=== PATIENT | male | born 1950 | race Caucasian/White ===

== ENCOUNTER 2017-02-16 07:12 | Day surgery (SDC) | payer MEDICARE, BC ==
[~2017-02-16 07:12] MED LIST: Acetaminophen TAB* 325 MG PO PRN; Buffered Lidocaine 0.9% SYRIN* 5 ML/SYR SYRINGE INTRADERM ONE
[2017-02-16] MEDS ORDERED: Midazolam* 1 MG/ML 2 ML VIAL (2 MG) ONE ×2 (08:37→08:56)
[2017-02-16] MEDS ORDERED: fentaNYL* 50 MCG/ML 2 ML VIAL (100 MCG VIAL) ONE (08:46)
[2017-02-16 09:35] VITALS: BP 160/73
--- NOTE | 2017-02-16 10:00 | OP ---
DATE OF OPERATION: 02/16/2017. DATE OF : 1950. SURGEON: Sam Longo M.D. PREOPERATIVE DIAGNOSIS: Cataract right eye. POSTOPERATIVE DIAGNOSIS: Cataract right eye. OPERATIVE PROCEDURE: Phacoemulsification right eye with IOL. PROCEDURE: The patient was brought to the operating room after being given 1/2% Alcaine with epinep hrine drops in the preoperative area. The eye was prepped and draped in the usual sterile fashion. Sterile drape and eyelid speculum were placed. Again, topical 1/2% Alcaine with epinephrine was gi zachary. A paracentesis incision was made at the 9 o'clock position with the No.75 blade. Clear cornea incision 2.2 x 2.2-mm was created at the 12 o'clock position starting at the anterior limbus using the 2.2-mm keratome. The anterior chamber was irrigated with 0.4 mL of 1% non-preservative intracam eral lidocaine and filled with DisCoVisc. A capsulorrhexis was completed using the cystotome and th e Utrata forceps. Hydrodissection was performed with balanced salt solution. The lens nucleus was r emoved with the Phacoemulsification handpiece without incident. Cortex was removed with the irrigat ion-aspiration handpiece. The capsular bag was re-inflated using DisCoVisc and an [id number] 19.5 impla nt was inserted with the shooter. The irrigation-aspiration handpiece was used to remove all residu al DisCoVisc. The eye was refilled with balanced salt solution and the wound checked and found to b e watertight. Topical Maxitrol drops were given. [id number]/[facility] #: [id number]
[2017-02-16] MEDS ORDERED: Buffered Lidocaine 0.9% SYRIN* 5 ML/SYR SYRINGE ONE (13:32)
[2017-02-16] MEDS ORDERED: Cyclopentolate 1% OPTH.SOL* 2 ML BTL ONE (13:32)
[2017-02-16] MEDS ORDERED: Neomycin/Polymy/Dex OPTH.SUSP* MAXITROL 0.1% 5 ML ONE (13:32)
[2017-02-16] MEDS ORDERED: Phenylephrine 2.5% OPTH.SOL* 2 ML BTL ONE (13:32)
[2017-02-16] MEDS ORDERED: Lidocaine 2% EPI 1:200000 MPF* 20 ML VIAL ONE (13:32)
[2017-02-16] MEDS ORDERED: acetaZOLAMIDE TAB* 250 MG ONE (13:32)
[2017-02-16] MEDS ORDERED: Proparacaine 0.5% OPHTH.SOL* 15 ML BTL ONE (13:32)
[2017-02-16] MEDS ORDERED: Lidocaine 1% MPF* 2 ML VIAL ONE (13:32)
[2017-02-16] MEDS ORDERED: Povidone Iodine 5% OPTH* 30 ML BTL ONE (13:32)
[2017-02-16] MEDS ORDERED: Ketorolac 0.5% OPHTH (NF) 0.5 % 5 ML BTL ONE (13:33)
== END 2017-02-16 09:30 | disposition home or self-care (01) ==
LOC: OREAST 07:12
PROVIDERS: ATTEND Specialist
DX: H25.811 Combined forms of age-related cataract, right eye (principal); E11.9 Type 2 diabetes mellitus without complications; Z79.84 Long term (current) use of oral hypoglycemic drugs; H18.6 Keratoconus; Z83.511 Family history of glaucoma; G47.31 Primary central sleep apnea; I10 Essential (primary) hypertension
CPT/HCPCS: A9270-GY; J2250; J3010; V2632

== ENCOUNTER 2017-02-23 10:10 | Day surgery (SDC) | payer MEDICARE, BC ==
[2017-02-23] MEDS ORDERED: Phenylephrine 2.5% OPTH.SOL* 2 ML BTL ONE (10:28)
[2017-02-23] MEDS ORDERED: Lidocaine 1% MPF* 2 ML VIAL ONE (10:28)
[2017-02-23] MEDS ORDERED: acetaZOLAMIDE TAB* 250 MG ONE (10:28)
[2017-02-23] MEDS ORDERED: Povidone Iodine 5% OPTH* 30 ML BTL ONE (10:28)
[2017-02-23] MEDS ORDERED: Lidocaine 2% EPI 1:200000 MPF* 20 ML VIAL ONE (10:28)
[2017-02-23] MEDS ORDERED: Neomycin/Polymy/Dex OPTH.SUSP* MAXITROL 0.1% 5 ML ONE (10:28)
[2017-02-23] MEDS ORDERED: Cyclopentolate 1% OPTH.SOL* 2 ML BTL ONE (10:28)
[2017-02-23] MEDS ORDERED: Ketorolac 0.5% OPHTH (NF) 0.5 % 5 ML BTL ONE (10:28)
[2017-02-23] MEDS ORDERED: fentaNYL* 50 MCG/ML 2 ML VIAL (100 MCG VIAL) ONE (12:35)
[2017-02-23] MEDS ORDERED: Midazolam* 1 MG/ML 5 ML VIAL (5 MG) ONE (12:36)
[2017-02-23] MEDS ORDERED: Metoprolol Tartrate IV* 1 MG/ML 5 ML VIAL ONE (13:17)
[2017-02-23 13:39] VITALS: BP 140/68
[2017-02-23] MEDS ORDERED: Proparacaine 0.5% OPHTH.SOL* 15 ML BTL ONE (15:32)
[2017-02-23] MEDS ORDERED: Buffered Lidocaine 0.9% SYRIN* 5 ML/SYR SYRINGE ONE (15:32)
--- NOTE | 2017-02-23 16:43 | OP ---
DATE OF OPERATION: 02/23/2017 - [facility] DATE OF : 1950. SURGEON: Sam Longo M.D. PREOPERATIVE DIAGNOSIS: Cataract left eye. POSTOPERATIVE DIAGNOSIS: Cataract left eye. OPERATIVE PROCEDURE: Phacoemulsification left eye with IOL. DESCRIPTION OF PROCEDURE: The patient was brought to the operating room after being given 1/2% Alcaine with epinephrine drops in the preoperative area. The eye was prepped and draped in the usual sterile fashion. Sterile drape and eyelid speculum were placed. Again, topical 1/2% Alcaine with epinephrine was given. A paracentesis incision was made at the 3 o'clock position with the No.75 blade. Clear cornea incision 2.2 x 2.2-mm was created at the 6 o'clock position starting at the anterior limbus using the 2.2-mm keratome. The anterior chamber was irrigated with 0.4 mL of 1% non-preservative intracameral lidocaine and filled with DisCoVisc. A capsulorrhexis was completed using the cystotome and the Utrata forceps. Hydrodissection was performed with balanced salt solution. The lens nucleus was removed with the Phacoemulsification handpiece without incident. Cortex was removed with the irrigation-aspiration handpiece. The capsular bag was re-inflated using DisCoVisc and an [id number] 20.5 implant was inserted with the shooter, oriented to the 23 degree [place]. Horizontal reference swift were made with the patient in a seated position in the preoperative area. The irrigation-aspiration handpiece was used to remove all residual DisCoVisc. The eye was refilled with balanced salt solution and the wound checked and found to be watertight. Topical Maxitrol drops were given. [id number]/[facility] #: [id number] [facility]
== END 2017-02-23 13:59 | disposition home or self-care (01) ==
LOC: OREAST 10:10
PROVIDERS: ATTEND Specialist
DX: E11.36 Type 2 diabetes mellitus with diabetic cataract (principal); H25.812 Combined forms of age-related cataract, left eye; H18.6 Keratoconus; Z96.1 Presence of intraocular lens; Z83.511 Family history of glaucoma; Z79.84 Long term (current) use of oral hypoglycemic drugs; E78.5 Hyperlipidemia, unspecified; I10 Essential (primary) hypertension; G47.31 Primary central sleep apnea; M10.9 Gout, unspecified; N40.0 Benign prostatic hyperplasia without lower urinary tract symptoms; N39.0 Urinary tract infection, site not specified; R31.9 Hematuria, unspecified
CPT/HCPCS: A9270-GY; J2250; J3010; V2787

== ENCOUNTER 2018-07-31 06:47 | Observation (INO) | payer MEDICARE, BC ==
--- NOTE | 2018-07-14 07:22 | HP ---
CC: Dr. Cox; Dr. Dubose * ADMITTING HISTORY AND PHYSICAL: DATE OF ADMISSION: 07/31/18 ADMITTING DIAGNOSES: 1. Benign prostatic hypertrophy. 2. Recurrent urinary tract infection. PLANNED PROCEDURE: Transurethral resection of prostate. SURGEON: Dr. Mcgarry. HISTORY OF PRESENT ILLNESS: Clinton Basilio is a 68-year-old gentleman with a longstanding history of prostate enlargement and a history of recurrent urinary tract infections including an episode of sepsis. He was scheduled for transurethral resection of prostate on 07/05/18, but the surgery had to be postponed because of yet another urinary tract infection, and the plan now is for him to stay on Augmentin 875 mg once a day till he can have the prostate surgery. PAST MEDICAL HISTORY: Significant for: 1. Diabetes mellitus, type 2. 2. Benign essential hypertension. 3. Hypercholesterolemia. 4. Central sleep apnea syndrome. 5. History of sepsis. 6. Idiopathic gout. MEDICATIONS ON ADMISSION: 1. Lovaza 1 g 2 capsules twice a day. 2. Aspirin 81 mg a day. 3. Atenolol/chlorthalidone 100/25 one tablet daily. 4. Finasteride 5 mg daily. 5. Allopurinol 300 mg daily. 6. Atorvastatin 40 mg daily. 7. Tamsulosin 0.4 mg twice daily. 8. Janumet XR 50/500 one tablet daily. ALLERGIES: No known drug allergies. REVIEW OF SYSTEMS: He denies any chest pain or shortness of breath. He does have morbid obesity. PHYSICAL EXAMINATION GENERAL: Reveals a pleasant overweight gentleman. VITAL SIGNS: Blood pressure is 142/68, pulse 78 per minute, regular, oxygen saturation 96% on room air. LUNGS: Clear bilaterally. CARDIOVASCULAR: Regular rate and rhythm. S1, S2. ABDOMEN: Soft, obese without masses. IMPRESSION: Urinalysis on 07/13/18 in my office was negative and I have also recommended that he do a surveillance urine culture 1 week prior to the transurethral resection of prostate to make sure he does not develop yet another infection. I have discussed the procedure of transurethral resection of prostate including possible risks of bleeding, infection, erectile and ejaculatory dysfunction and incontinence. PLAN: Transurethral resection of prostate. [id number]/[facility] #: [id number] [facility]
[~2018-07-31 06:47] MED LIST changes: -Acetaminophen TAB* 325 MG PO PRN; -Buffered Lidocaine 0.9% SYRIN* 5 ML/SYR SYRINGE INTRADERM ONE; +Buffered Lidocaine 1% SYRIN* 1 ML/SYRINGE INTRADERM ONE; +Famotidine IV* 10 MG/ML 2 ML (20 mg) IV ONE; +Metoclopramide IV* 5 MG/ML 2 ML VIAL IV SLOW PU ONE
[2018-07-31] MEDS ORDERED: Metoclopramide IV* 5 MG/ML 2 ML VIAL ONE (07:44)
[2018-07-31] MEDS ORDERED: cefTRIAXone(*) 2 GM ADDV.VIAL IVPB ONE (07:44)
[2018-07-31] MEDS ORDERED: Famotidine IV* 10 MG/ML 2 ML (20 mg) ONE (07:45)
[2018-07-31] MEDS: Lactated Ringers 1000 ML Bag* 1,000 ML IV SCH ×3 (07:55→19:13)
[2018-07-31] MEDS ORDERED: Gentamicin ADULT (*) 180 MG in NS 0.9% 100 ML* 100 ML IVPB ONE (08:30)
[2018-07-31] MEDS ORDERED: Lidocaine 2% PF * 5 ML VIAL ONE (08:32)
[2018-07-31] MEDS ORDERED: fentaNYL* 50 MCG/ML 2 ML VIAL (100 MCG VIAL) ONE ×2 (08:32→10:02)
[2018-07-31] MEDS ORDERED: Propofol* 10 MG/ML 20 ML BTL ONE (08:32)
[2018-07-31] MEDS ORDERED: Midazolam* 1 MG/ML 2 ML VIAL (2 MG) ONE (08:32)
[2018-07-31] MEDS ORDERED: Furosemide IV* 10 MG/ML 2 ML VIAL (20 MG) ONE (09:00)
[2018-07-31] MEDS ORDERED: Succinylcholine* 20 MG/ML 10 ML VIAL ONE (09:25)
[2018-07-31] MEDS ORDERED: EPHEDrine (Pressors)* 50 MG/ML VIAL ONE (09:25)
[2018-07-31] MEDS ORDERED: Ondansetron INJ* 2 MG/ML VIAL ONE (09:29)
[2018-07-31] MEDS ORDERED: DiMENhydriNATE IV* 50 MG/ML VIAL IV PUSH PRN (09:41)
[2018-07-31] MEDS ORDERED: Naloxone* 0.4 MG/ML 1 ML VIAL IV PRN (09:41)
[2018-07-31] MEDS ORDERED: fentaNYL* 50 MCG/ML 2 ML VIAL (100 MCG VIAL) IV PRN (09:41)
[2018-07-31] MEDS ORDERED: Lidocaine 2% JELLY* 6 ML JELLY TOPICAL PRN (13:30)
[2018-07-31] MEDS ORDERED: Lidocaine 2% JELLY* 6 ML JELLY TOPICAL SCH (13:30)
[2018-07-31] MEDS: Insulin REGULAR(*) 1 UNITS UNIT SUBCUT SCH ×2 (17:58→20:55)
[2018-07-31] MEDS ORDERED: Cholecalciferol TAB* 1000 UNITS PO SCH (18:00)
[2018-07-31] MEDS ORDERED: ZINC GLUCONATE PO SCH (18:00)
[2018-07-31] MEDS ORDERED: Allopurinol TAB* 300 MG PO SCH (18:00)
[2018-07-31] MEDS ORDERED: Atenolol TAB* 25 MG PO SCH (18:00)
[2018-07-31] MEDS ORDERED: CMC:SitaGLIPtin (NF) 100 MG TAB PO SCH (18:00)
[2018-07-31] MEDS ORDERED: Multivitamins/Minerals TAB PO SCH (18:00)
[2018-07-31] MEDS ORDERED: Atorvastatin* 40 MG TAB PO SCH (18:00)
[2018-07-31] MEDS ORDERED: metFORMIN* 1,000 MG TAB PO SCH (18:00)
--- NOTE | 2018-07-31 20:45 | OP ---
CC: Dr. Cox * DATE OF OPERATION: 07/31/18 - ROOM #[id number] DATE OF : [birth year] SURGEON: Beto Mcgarry MD ANESTHESIOLOGIST: Dr. Barba. ANESTHESIA: General. PRE-OP DIAGNOSES: 1. Benign prostatic hypertrophy. 2. Current urinary tract infection. POST-OP DIAGNOSES: 1. Benign prostatic hypertrophy. 2. Current urinary tract infection. OPERATIVE PROCEDURE: 1. Transurethral resection of prostate. 2. Transurethral incision of bladder neck. COMPLICATIONS: None. BLOOD LOSS: Less than 100 cc. CATHETER: 24-Peruvian Feliz. INDICATIONS: Clinton Basilio is a 68-year-old gentleman with recurrent urinary tract infections secondary to BPH. He has failed medial therapy and is now being brought in for transurethral resection of prostate. DESCRIPTION OF PROCEDURE: After induction of general anesthesia, the patient was placed in dorsal lithotomy position. Sequential compression devices were in place and functioning. Initial cystoscopy revealed mild narrowing of the entire penile and bulbar urethra with no definite focal stricture noted. The prostate was significantly enlarged and obstructing. The blader was trabeculated with few small diverticula. Transurethral resection of prostate was carried out from the bladder neck down to the veru. The floor of the prostate was first resected, followed by the lateral lobe tissue, and then the anterior tissue. At no point was the resection carried distal to the veru in an effort to avoid any potential injury to the sphincter. Next, using a right angle knife electrode, bladder neck incision was carried out at the 5 and 7 o'clock positions in an effort to reduce the chances of postoperative bladder neck contracture. At the end of the procedure, hemostasis appeared satisfactory. A 24-Peruvian Feliz was introduced without difficulty and connected to a drainage bag. The patient tolerated the procedure satisfactorily and was transferred back to the recovery area in stable condition. [id number]/[facility] #: [id number] [place]
[2018-08-01] MEDS: Lactated Ringers 1000 ML Bag* 1,000 ML IV SCH (01:47)
[2018-08-01 06:30] LABS: BUN/Creatinine Ratio 12.4 (8-20); Calcium 8.5 mg/dL (8.6-10.3); EGFR African American 93.1 (>60); Potassium 3.3 mmol/L (3.5-5.0)
[2018-08-01] MEDS ORDERED: cefTRIAXone(*) 2 GM in NS 0.9% 100 ML* 100 ML IVPB ONE (09:00)
[2018-08-01 09:13] VITALS: BP 166/73
[2018-08-01] MEDS: Insulin REGULAR(*) 1 UNITS UNIT SUBCUT SCH (09:16)
--- NOTE | 2018-08-01 20:49 | DS ---
CC: Dr. Cox * DISCHARGE SUMMARY: DATE OF ADMISSION: 07/31/18 DATE OF DISCHARGE: 08/01/18 ADMITTING DIAGNOSES: 1. Benign prostatic hypertrophy. 2. Recurrent urinary tract infection. DISCHARGE DIAGNOSES: 1. Benign prostatic hypertrophy. 2. Recurrent urinary tract infection. SURGICAL PROCEDURE ON THIS ADMISSION: On 07/31/18, transurethral resection of prostate. ADMITTING HISTORY AND HOSPITAL COURSE: Clinton Basilio is a 68-year-old gentleman with longstanding history of symptomatic BPH and recurrent urinary tract infection. For details, please see admitting history and physical. HOSPITAL COURSE: On 07/31/18, Mr. Basilio underwent transurethral resection of prostate under general anesthesia. Surgery was smooth and uneventful and he was monitored overnight. I evaluated him on the evening of 07/31/18 and also in the morning on 08/01/18 and his Feliz catheter was draining clear urine with good output. He was discharged home for followup as per outpatient protocol for catheter removal. [id number]/[facility] #: [id number] [facility]
== END 2018-08-01 10:55 | disposition home or self-care (01) ==
LOC: OR 06:47 → SSU 08:36
PROVIDERS: ADMIT Urology; ATTEND Urology
DX: N40.0 Benign prostatic hyperplasia without lower urinary tract symptoms (principal); N39.0 Urinary tract infection, site not specified; E11.9 Type 2 diabetes mellitus without complications; G93.2 Benign intracranial hypertension; E78.00 Pure hypercholesterolemia, unspecified; G47.31 Primary central sleep apnea; M10.00 Idiopathic gout, unspecified site; Z86.19 Personal history of other infectious and parasitic diseases; Z79.82 Long term (current) use of aspirin
CPT/HCPCS: 36415; 80048; 88305; 96374; 96375; A9270-GY; G0378; J0330; J0696; J1580; J1940; J2250; J2405; J2704; J2765; J3010